=== PATIENT | male | born 1985 | race Caucasian/White ===

== ENCOUNTER 2017-07-01 08:57 | Inpatient (IN) | payer OTHER ==
--- NOTE | 2017-07-01 00:43 | HP ---
Screened but not Admitted - Documentation of Visit Screened but not Admitted: Yes Left Prior to Completion of Assessment: Yes Level of Care Recommended at this Time: ER Evaluation/Care (Patient came c/o new onset chest pain. Respiration unlabored. Alert and oriented. Transported to ER by ambulance. Report given to Dr. Adrian.) Additional Information/Explanation: Hx. Alcohol and Heroin dependency.
[2017-07-01 10:17] VITALS: BMI 35.1
--- NOTE | 2017-07-01 13:05 | HP ---
CIWA Score - CIWA Score Nausea/Vomitin-Mild Nausea/No Vomiting Muscle Tremors: 4-Moderate,w/Arms Extend Anxiety: 4-Mod. Anxious/Guarded Agitation: 1-Slight > Activity Paroxysmal Sweats: 1-Minimal Palms Moist Orientation: 1-Uncertain about Date Tacttile Disturbances: 1-Very Mild Itch/Numbness Auditory Disturbances: 1-Very Mild Visual Disturbances: 1-Very Mild Sensitivity Headache: 1-Very Mild CIWA-Ar Total Score: 16 Admission ROS S - HPI Chief Complaint: Every day I get worse, my dad is on me to get help, I can't just stop by myself Allergies/Adverse Reactions: Allergies Allergy/AdvReac Type Severity Reaction Status Date / Time acetaminophen Allergy Intermediate Hives Verified 07/01/17 13:08 Sulfa (Sulfonamide Allergy Intermediate Hives Verified 07/01/17 13:08 Antibiotics) History of Present Illness: 32 yo gentleman here for detox from alcohol and opiates, however urine tox negative for opiates, negative for oxy. Has untreated psychiatric disorder - never picked up lithium prescription. States had drug related seizure he thinks April 2017 when he tried to stop drinking on his own. Was evaluated in [facility] ED earlier today for chest pain which has abated and was cleared to return for detox. Exam Limitations: Clinical Condition - Ebola screening Have you traveled outside of the country in the last 21 days: No (N) Have you had contact with anyone from an Ebola affected area: No Have you been sick,other than usual withdrawal symptoms: No Do you have a fever: No - Review of Systems Constitutional: Loss of Appetite, Malaise, Changes in sleep EENT: reports: Nose Congestion Respiratory: reports: No Symptoms reported Cardiac: reports: No Symptoms Reported GI: reports: Poor Appetite, Indigestion, Abdominal cramping : reports: Frequency Musculoskeletal: reports: Back Pain, Muscle Pain Integumentary: reports: No Symptoms Reported Neuro: reports: Headache, Tremors Endocrine: reports: No Symptoms Reported Hematology: reports: No Symptoms Reported Psychiatric: reports: Judgement Intact, Orientated x3, Anxious Other Systems: Reviewed and Negative Patient History - Patient Medical History Hx Asthma: Yes (ALBUTEROL PUMP) Hx Chronic Obstructive Pulmonary Disease (COPD): No Hx Cancer: No Hx Cardiac Disorders: Yes Hx Congestive Heart Failure: No Hx Hypertension: Yes HX Cerebrovascular Accident: No Hx Seizures: Yes (WITHDRAWAL INDUCED SEIZURE 5 MONTHS AGO) Hx Diabetes: Yes (NOT ON ANY MEDICATION OR INSULIN CURRENTLY) Hx Gastrointestinal Disorders: No Hx Liver Disease: Yes (fatty liver - alcohol related) Hx Genitourinary Disorders: No Hx Sexually Transmitted Disorders: No Hx Renal Disease (ESRD): No Hx Thyroid Disease: No Hx Human Immunodeficiency Virus (HIV): No Hx Hepatitis C: No Hx Depression: Yes Hx Suicide Attempt: No Hx Bipolar Disorder: Yes (non adherent) Hx Schizophrenia: Yes (hospitalized [facility] in may) - Patient Surgical History Past Surgical History: Yes Hx Neurologic Surgery: No Hx Cataract Extraction: No Hx Cardiac Surgery: No Hx Lung Surgery: No Hx Breast Surgery: No Hx Breast Biopsy: No Hx Abdominal Surgery: No Hx Appendectomy: No Hx Cholecystectomy: No Hx Genitourinary Surgery: No Hx Section: No Hx Orthopedic Surgery: Yes (RIGHT ELBOW 20 YEARS AGO) - PPD History Previous Implant?: Yes Documented Results: Negative w/o proof Implanted On Prior [facility] Admission?: No PPD to be Administered?: Yes - Reproductive History Patient is a Female of Child Bearing Age (11 -55 yrs old): No - Smoking Cessation Smoking history: Current every day smoker Have you smoked in the past 12 months: Yes Aproximately how many cigarettes per day: 40 Hx Chewing Tobacco Use: No Initiated information on smoking cessation: Yes 'Breaking Loose' booklet given: 07/01/17 (give on floor) - Substance & Tx. History Hx Alcohol Use: Yes Hx Substance Use: Yes Substance Use Type: Alcohol, Cocaine, Heroin Hx Substance Use Treatment: Yes (detox, rehab) - Substances Abused Heroin Route: Inhalation Frequency: 3-6 times per week Amount used: 5-6 BAGS WHEN USED Age of first use: 16 Date of Last Use: 06/28/17 Alcohol Route: Oral Amount used: 15 CANS OF HARD ICE TEA, 24 OUNCES, 1-2 PINTS OF VODKA Age of first use: 14 Date of Last Use: 06/30/17 Marijuana/Hashish Route: Smoking Frequency: Daily Amount used: 4-5 BLUNTS DAILY Age of first use: 12 Date of Last Use: 06/30/17 oxycodone Route: Oral Frequency: 3-6 times per week Amount used: 10mg Age of first use: 28 Date of Last Use: 06/28/17 Family Disease History - Family Disease History Family Disease History: Heart Disease: Father (living - healthy, etoh/pot), Other: Father, Mother (living - healthy), Brother (one - living -healthy - etoh/ pot) Admission Physical Exam [facility] - Vital Signs Vital Signs: Vital Signs - 24 hr 07/01/17 10:11 Temperature 98.7 F Pulse Rate 89 Respiratory 17 Rate Blood Pressure 124/85 - Physical General Appearance: Yes: Nourished, Appropriately Dressed, Moderate Distress, Tremorous, Irritable, Anxious HEENTM: Yes: Hearing grossly Normal, Normal ENT Inspection, Normocephalic, Normal Voice, Pharynx Normal Respiratory: Yes: Normal Breath Sounds, No Respiratory Distress Neck: Yes: No masses,lesions,Nodules, Supple Breast: Yes: Breast Exam Deferred Cardiology: Yes: Regular Rhythm, Regular Rate Abdominal: Yes: Flat, Soft Genitourinary: Yes: Frequency Back: Yes: Normal Inspection Musculoskeletal: Yes: full range of Motion, Gait Steady Extremities: Yes: Normal Inspection Neurological: Yes: Alert, Motor Strength 5/5, Normal Mood/Affect, Normal Response Integumentary: Yes: Rash (facial rash - erythematous, scratch ojeda scalp - erythematous - states chronic left lower extremity with circular 4x2 inch dry scaley rash on erythematous base - chronic) Lymphatic: Yes: Within Normal Limits - Diagnostic (1) Alcohol dependence with uncomplicated withdrawal Current Visit: Yes Status: Chronic (2) Cannabis dependence Current Visit: Yes Status: Chronic (3) Obesity (BMI 30-39.9) Current Visit: Yes Status: Chronic (4) Diabetes mellitus type 2, diet-controlled Current Visit: Yes Status: Chronic Comment: history of being on insulin and pills but none lately - [id number] (5) Psoriasis Current Visit: Yes Status: Acute (6) Nicotine dependence Current Visit: Yes Status: Chronic Qualifiers: Nicotine product type: cigarettes Substance use status: uncomplicated Qualified Code(s): F17.210 - Nicotine dependence, cigarettes, uncomplicated (7) History of seizure Current Visit: Yes Status: Chronic Cleared for Admission [facility] - Detox or Rehab [facility] Level of Care: Medically Managed Detox Regimen/Protocol: Librium [facility] Breath Alcohol Content Breath Alcohol Content: 0 Urine Drug Screen - Results Drug Screen Negative: No Urine Drug Screen Results: THC-Marijuana, BZO-Benzodiazepines
[2017-07-01] MEDS ORDERED: LOPERAMIDE HCL 2 MG CAPSULE PO PRN (13:24)
[2017-07-01] MEDS ORDERED: P-EPHED 60MG/TRIPROLIDI 2.5MG TABLET PO PRN (13:24)
[2017-07-01] MEDS ORDERED: hydrOXYzine PAMOATE 25 MG CAPSULE (FP) PO PRN (13:24)
[2017-07-01] MEDS ORDERED: MAGNESIUM CITRATE 300 ML BOTTLE PO PRN (13:24)
[2017-07-01] MEDS ORDERED: MAGNESIUM HYDROX 2400MG/30ML ORAL SUSPENSION 30 ML CUP PO PRN (13:24)
[2017-07-01] MEDS ORDERED: MENTHOL/PHENOL 1 EACH UD MM PRN (13:24)
[2017-07-01] MEDS ORDERED: MAG HYDROX/AL HYDROX/SIMETH 30 ML UNIT-DOSE CUP PO PRN (13:24)
[2017-07-01] MEDS ORDERED: chlordiazePOXIDE HCL 25 MG CAPSULE PO ONE (14:15)
[2017-07-01] MEDS ORDERED: METHADONE HCL 10 MG TABLET (FOR DETOX USE ONLY) PO ONE ×2 (14:15→23:00)
[2017-07-01] MEDS: HYDROCORTISONE 1% TOPICAL OINT 30 GM TUBE TP SCH ×2 (14:42→23:39)
[2017-07-01] MEDS: NICOTINE 21 MG/24 HOURS TOPICAL PATCH TD SCH (14:43)
[2017-07-01] MEDS: ALBUTEROL SO4 18 GM HFA INHALER IH SCH ×3 (14:43→22:43)
[2017-07-01 16:49] LABS: URINE APPEARANCE CLEAR; URINE BILIRUBIN NEGATIVE (<2.0 mg/dL); URINE COLOR YELLOW; URINE GLUCOSE (UA) NEGATIVE (NEGATIVE); URINE KETONE NEGATIVE (NEGATIVE); URINE LEUK ESTERASE NEGATIVE (NEGATIVE); URINE NITRITE NEGATIVE (NEGATIVE); URINE UROBILINOGEN NEGATIVE mg/dL (0.2-1.0)
[2017-07-01 16:51] LABS: URINE PROTEIN 1+ (NEGATIVE)
[2017-07-01 16:54] LABS: EPI CELLS RARE /HPF (FEW); URINE MUCUS FEW
[2017-07-01] MEDS: chlordiazePOXIDE HCL 25 MG CAPSULE PO PRN (19:37)
[2017-07-01] MEDS: chlordiazePOXIDE HCL 25 MG CAPSULE PO SCH (22:41)
[2017-07-01] MEDS: THIAMINE HCL 100 MG TABLET (FP) PO SCH (22:41)
[2017-07-01] MEDS: MELATONIN 5 MG TABLETS PO PRN (22:44)
[2017-07-02] MEDS: chlordiazePOXIDE HCL 25 MG CAPSULE PO SCH ×4 (06:19→22:39)
[2017-07-02] MEDS ORDERED: METHADONE HCL 10 MG TABLET (FOR DETOX USE ONLY) PO SCH (10:00)
--- NOTE | 2017-07-02 10:05 | CONSULT ---
[facility] Psychiatric Consult - Data Date of interview: 07/02/17 Admission source: Self-referred Identifying data: Patient is a 32 y/o male single, unemployed, domiciled, father of 5 children, SSI recipient Substance Abuse History: He reports a history of substance use disorder and prior [facility] treatment. Admitted for ETOH, Cocaine, Heroin, marijuana and oxycodone and benzodiazepines. Refer to addiction counselor note for more detailed history Medical History: Medical history is significant for Asthma, he was seen testerday @ [place] [facility] for chest pain and deemeed medcially cleared. history of past elbow surgery 20 years ago Psychiatric History: Patient is diagnosed with schizo affective disorder. He has a history of non compliance and non adherence with his out patient psychiatric care. He was recently admistted to [facility] in patient psychiatric [facility]ony unit in May 2017. Medications: Klonopin , [place] ( dosage unclear) Physical/Sexual Abuse/Trauma History: Denies past hostory of abuse or trauma Mental Status Exam - Mental Status Exam Alert and Oriented to: Place, Person Cognitive Function: Fair Patient Appearance: Unkempt Mood: Angry Affect: Constricted Patient Behavior: Fatigued, Distractible, Asleep, Cooperative Speech Pattern: Slurred Voice Loudness: Normal Thought Process: Intact Thought Disorder: Not Present Hallucinations: None Suicidal Ideation: None Homicidal Ideation: None Insight/Judgement: Poor Sleep: Poorly Appetite: Fair Muscle strength/Tone: Normal Gait/Station: Normal Psychiatric Findings - Problem List ([place] 1, 2,3) (1) Alcohol dependence with uncomplicated withdrawal Current Visit: Yes Status: Acute (2) History of seizure Current Visit: Yes Status: Chronic (3) Cannabis dependence Current Visit: Yes Status: Acute (4) Schizoaffective disorder, bipolar type Current Visit: Yes Status: Acute (5) Schizoaffective disorder, bipolar type Current Visit: Yes Status: Chronic - Initial Treatment Plan Initial Treatment Plan: Continue Detox treatment. Patient's medication doasage is unclear therefore medication will not be ordered
[2017-07-02] MEDS: PRENATAL VITAMINS W/ FOLIC ACID TABLET (FP) PO SCH (10:18)
[2017-07-02] MEDS: HYDROCORTISONE 1% TOPICAL OINT 30 GM TUBE TP SCH ×2 (10:19→22:53)
[2017-07-02] MEDS: ALBUTEROL SO4 18 GM HFA INHALER IH SCH ×4 (10:19→22:39)
[2017-07-02] MEDS: SELENIUM SULFIDE 2.5% LOTION 4 OZ. TP SCH (10:19)
[2017-07-02] MEDS: NICOTINE 21 MG/24 HOURS TOPICAL PATCH TD SCH (10:19)
[2017-07-02] MEDS ORDERED: cloNIDine HCL 0.1 MG TABLET PO ONE (11:22)
--- NOTE | 2017-07-02 11:29 | PN ---
[facility] CIWA - CIWA Score Nausea/Vomitin-No Nausea/No Vomiting Muscle Tremors: 4-Moderate,w/Arms Extend Anxiety: 5 Agitation: 5 Paroxysmal Sweats: 1-Minimal Palms Moist Orientation: 0-Oriented Tacttile Disturbances: 3-Moderate Itch/Numb/Burn Auditory Disturbances: 0-None Visual Disturbances: 0-None Headache: 0-None Present CIWA-Ar Total Score: 18 BHS Progress Note (SOAP) Subjective: ANXIETY,IRRITABILITY,ANGRY AND PUNCHING THINGS BECAUSE WANTS KLONOPIN AND METHADONE(OPIATE NEGATIVE TOXICOLOGY0. PT C/O INSOMNIA STATING MELATONIN DID NOT HELP LAST NIGHT. Objective: 07/02/17 14:16 Vital Signs 07/02/17 07/02/17 07/02/17 06:30 10:37 13:57 Temperature 95.5 F L 97.6 F Pulse Rate 83 80 Respiratory 18 20 20 Rate Blood Pressure 134/92 134/77 Laboratory Tests 07/01/17 07/01/17 07/01/17 09:15 12:52 16:47 POC Glucometer 124 166 Urine Color Yellow Urine Appearance Clear Urine pH 6.0 Ur Specific [place] 1.026 Urine Protein 1+ H Urine Glucose (UA) Negative Urine Ketones Negative Urine Blood Negative Urine Nitrite Negative Urine Bilirubin Negative Urine Urobilinogen Negative Ur Leukocyte Esterase Negative Urine WBC (Auto) 3 Urine RBC (Auto) 2 Ur Epithelial Cells Rare Urine Mucus Few OTHER LABS PENDING Assessment: 07/02/17 14:16 WITHDRAWAL SX Plan: CONTINUE DETOX CLONIDINE AND FLEXERIL ORDERED. F/U WITH PSYCH RE-EVAL FOR CONSULT
--- NOTE | 2017-07-02 13:27 | EKG ---
Test Reason : Blood Pressure : / mmHG Vent. Rate : 088 BPM Atrial Rate : 088 BPM P-R Int : 120 ms QRS Dur : 090 ms QT Int : 382 ms P-R-T Axes : 050 070 058 degrees QTc Int : 462 ms NORMAL SINUS RHYTHM NORMAL ECG WHEN COMPARED WITH ECG OF 01-JUL-2017 03:25, NONSPECIFIC T WAVE ABNORMALITY NO LONGER EVIDENT IN ANTEROLATERAL LEADS Confirmed by YARED POPE, ZHOU ([id number]) on 07/02/2017 1:27:28 PM Referred By: Confirmed By:ZHOU VAIL MD
[2017-07-02] MEDS: CYCLOBENZAPRINE HCL 10 MG TABLET (FP) PO SCH ×2 (14:30→22:39)
[2017-07-02] MEDS: IBUPROFEN 400 MG TABLET (FP) PO PRN (18:30)
[2017-07-02] MEDS: guaiFENesin/D-METHORPHAN HB 10 ML UNIT-DOSE CUPS PO PRN (19:17)
[2017-07-02] MEDS ORDERED: NICOTINE POLACRILEX 4 MG GUM BUC PRN (19:45)
[2017-07-02] MEDS: GABAPENTIN 100 MG CAPSULE (FP) PO SCH (22:39)
[2017-07-02] MEDS: THIAMINE HCL 100 MG TABLET (FP) PO SCH (22:39)
[2017-07-02] MEDS: cloNIDine HCL 0.1 MG TABLET PO SCH (22:39)
[2017-07-02] MEDS: ZOLPIDEM TARTRATE 10 MG TABLET (PARK CARE ONLY) PO PRN (22:40)
[2017-07-03] MEDS ORDERED: hydrOXYzine PAMOATE 50 MG CAPSULE (FP) PO SCH
[2017-07-03] MEDS: hydrOXYzine PAMOATE 50 MG CAPSULE (FP) PO PRN ×2 (03:08→18:07)
[2017-07-03] MEDS: chlordiazePOXIDE HCL 25 MG CAPSULE PO PRN (03:09)
[2017-07-03] MEDS: chlordiazePOXIDE HCL 25 MG CAPSULE PO SCH ×3 (05:29→18:03)
[2017-07-03] MEDS: GABAPENTIN 100 MG CAPSULE (FP) PO SCH ×3 (05:29→22:38)
[2017-07-03] MEDS: CYCLOBENZAPRINE HCL 10 MG TABLET (FP) PO SCH ×3 (05:29→22:38)
[2017-07-03] MEDS: IBUPROFEN 400 MG TABLET (FP) PO PRN ×3 (05:30→18:07)
[2017-07-03] MEDS ORDERED: METHADONE HCL 5 MG TABLET (FOR DETOX USE ONLY) PO SCH (10:00)
[2017-07-03 10:02] LABS: BASO % 0.4 % (0-2.0); EOS % 3.3 % (0-4.5); HEMATOCRIT 38.2 % (35.4-49); HEMOGLOBIN 13.4 GM/dL (11.7-16.9); LYMPH % 24.4 % (8-40); MCH 32.4 pg (25.7-33.7); MEAN CELL VOLUME 92.6 fl (80-96); MEAN PLT VOLUME 9.5 fl (7.5-11.1); MONO % 7.7 % (3.8-10.2); NEUT % 64.2 % (42.8-82.8); PLATELET COUNT 189 K/MM3 (134-434); RBC 4.13 M/mm3 (4.00-5.60); RDW 12.8 % (11.9-15.9)
[2017-07-03 10:07] LABS: ALBUMIN 3.2 g/dl (3.4-5.0); ANION GAP 6 (8-16); BILIRUBIN,TOTAL 0.3 mg/dL (0.2-1.0); BLOOD UREA NITROGEN 17 mg/dL (7-18); CALCIUM 8.2 mg/dL (8.5-10.1); CHLORIDE 107 mmol/L (98-107); CO2 28 mmol/L (21-32); GLUCOSE,RANDOM 180 mg/dL (74-106); SGOT/AST 10 U/L (15-37); SGPT/ALT 21 U/L (12-78); SODIUM 141 mmol/L (136-145); TOT PROT 5.9 g/dl (6.4-8.2)
[2017-07-03 10:08] LABS: ALK PHOS 63 U/L (45-117)
[2017-07-03] MEDS: PRENATAL VITAMINS W/ FOLIC ACID TABLET (FP) PO SCH (11:58)
[2017-07-03] MEDS: cloNIDine HCL 0.1 MG TABLET PO SCH ×2 (11:59→22:37)
[2017-07-03] MEDS: SELENIUM SULFIDE 2.5% LOTION 4 OZ. TP SCH (12:00)
[2017-07-03] MEDS: NICOTINE 21 MG/24 HOURS TOPICAL PATCH TD SCH (12:01)
[2017-07-03] MEDS: HYDROCORTISONE 1% TOPICAL OINT 30 GM TUBE TP SCH ×2 (12:01→22:40)
[2017-07-03] MEDS: ALBUTEROL SO4 18 GM HFA INHALER IH SCH ×4 (12:04→22:40)
--- NOTE | 2017-07-03 13:33 | PN ---
S CIWA - CIWA Score Nausea/Vomitin Muscle Tremors: 3 Anxiety: 4-Mod. Anxious/Guarded Agitation: 5 Paroxysmal Sweats: 1-Minimal Palms Moist Orientation: 0-Oriented Tacttile Disturbances: 0-None Auditory Disturbances: 0-None Visual Disturbances: 0-None Headache: 0-None Present CIWA-Ar Total Score: 16 BHS Progress Note (SOAP) Subjective: Sweats shakes sleep disturbance Objective: 07/03/17 13:32 A & O x 3 Anxious Irritable Vital Signs Temperature 95.7 F L 07/03/17 09:26 Pulse Rate 81 07/03/17 09:26 Respiratory Rate 16 07/03/17 09:26 Blood Pressure 107/70 07/03/17 09:26 O2 Sat by Pulse Oximetry (%) Laboratory Last Values WBC 8.0 K/mm3 (4.0-10.0) 07/03/17 07:00 RBC 4.13 M/mm3 (4.00-5.60) 07/03/17 07:00 Hgb 13.4 GM/dL (11.7-16.9) 07/03/17 07:00 Hct 38.2 % (35.4-49) 07/03/17 07:00 MCV 92.6 fl (80-96) 07/03/17 07:00 MCH 32.4 pg (25.7-33.7) 07/03/17 07:00 MCHC 35.0 g/dl (32.0-35.9) 07/03/17 07:00 RDW 12.8 % (11.9-15.9) 07/03/17 07:00 Plt Count 189 K/MM3 (134-434) 07/03/17 07:00 MPV 9.5 fl (7.5-11.1) 07/03/17 07:00 Neutrophils % 64.2 % (42.8-82.8) 07/03/17 07:00 Lymphocytes % 24.4 % (8-40) 07/03/17 07:00 Monocytes % 7.7 % (3.8-10.2) 07/03/17 07:00 Eosinophils % 3.3 % (0-4.5) 07/03/17 07:00 Basophils % 0.4 % (0-2.0) 07/03/17 07:00 Sodium 141 mmol/L (136-145) 07/03/17 07:00 Potassium 4.0 mmol/L (3.5-5.1) 07/03/17 07:00 Chloride 107 mmol/L (98-107) 07/03/17 07:00 Carbon Dioxide 28 mmol/L (21-32) 07/03/17 07:00 Anion Gap 6 (8-16) L 07/03/17 07:00 BUN 17 mg/dL (7-18) 07/03/17 07:00 Creatinine 1.0 mg/dL (0.7-1.3) 07/03/17 07:00 Creat Clearance w eGFR > 60 (>60) 07/03/17 07:00 POC Glucometer 113 UNITS (80-120) 07/03/17 05:29 Random Glucose 180 mg/dL (74-106) H 07/03/17 07:00 Calcium 8.2 mg/dL (8.5-10.1) L 07/03/17 07:00 Total Bilirubin 0.3 mg/dL (0.2-1.0) 07/03/17 07:00 AST 10 U/L (15-37) L 07/03/17 07:00 ALT 21 U/L (12-78) 07/03/17 07:00 Alkaline Phosphatase 63 U/L (45-117) 07/03/17 07:00 Total Protein 5.9 g/dl (6.4-8.2) L 07/03/17 07:00 Albumin 3.2 g/dl (3.4-5.0) L 07/03/17 07:00 Urine Color Yellow 07/01/17 09:15 Urine Appearance Clear 07/01/17 09:15 Urine pH 6.0 (5.0-8.0) 07/01/17 09:15 Ur Specific [place] 1.026 (1.001-1.035) 07/01/17 09:15 Urine Protein 1+ (NEGATIVE) H 07/01/17 09:15 Urine Glucose (UA) Negative (NEGATIVE) 07/01/17 09:15 Urine Ketones Negative (NEGATIVE) 07/01/17 09:15 Urine Blood Negative (NEGATIVE) 07/01/17 09:15 Urine Nitrite Negative (NEGATIVE) 07/01/17 09:15 Urine Bilirubin Negative (<2.0 mg/dL) 07/01/17 09:15 Urine Urobilinogen Negative mg/dL (0.2-1.0) 07/01/17 09:15 Ur Leukocyte Esterase Negative (NEGATIVE) 07/01/17 09:15 Urine WBC (Auto) 3 /hpf (3-5) 07/01/17 09:15 Urine RBC (Auto) 2 /hpf (0-3) 07/01/17 09:15 Ur Epithelial Cells Rare /HPF (FEW) 07/01/17 09:15 Urine Mucus Few 07/01/17 09:15 Labs noted Assessment: 07/03/17 13:32 withdrawal sx Plan: Continue detox Continue hydration
[2017-07-03] MEDS: THIAMINE HCL 100 MG TABLET (FP) PO SCH (22:37)
[2017-07-03] MEDS: chlordiazePOXIDE 5 MG CAPSULE PO SCH (22:37)
[2017-07-03] MEDS: ZOLPIDEM TARTRATE 10 MG TABLET (PARK CARE ONLY) PO PRN (22:38)
[2017-07-04] MEDS: IBUPROFEN 400 MG TABLET (FP) PO PRN ×2 (02:12→10:36)
[2017-07-04] MEDS: hydrOXYzine PAMOATE 50 MG CAPSULE (FP) PO PRN ×3 (02:12→17:42)
[2017-07-04] MEDS: chlordiazePOXIDE 5 MG CAPSULE PO SCH ×3 (05:37→17:37)
[2017-07-04] MEDS: CYCLOBENZAPRINE HCL 10 MG TABLET (FP) PO SCH ×3 (05:37→22:20)
[2017-07-04] MEDS: GABAPENTIN 100 MG CAPSULE (FP) PO SCH ×3 (05:37→22:20)
[2017-07-04] MEDS: cloNIDine HCL 0.1 MG TABLET PO SCH ×2 (10:31→22:20)
[2017-07-04] MEDS: HYDROCORTISONE 1% TOPICAL OINT 30 GM TUBE TP SCH ×2 (10:32→23:07)
[2017-07-04] MEDS: ALBUTEROL SO4 18 GM HFA INHALER IH SCH ×4 (10:32→22:20)
[2017-07-04] MEDS: PRENATAL VITAMINS W/ FOLIC ACID TABLET (FP) PO SCH (10:32)
[2017-07-04] MEDS: NICOTINE 21 MG/24 HOURS TOPICAL PATCH TD SCH (10:33)
[2017-07-04] MEDS: SELENIUM SULFIDE 2.5% LOTION 4 OZ. TP SCH (10:34)
--- NOTE | 2017-07-04 11:45 | PN ---
BHS Progress Note (SOAP) Subjective: Body Aches, Interrupted Sleep, Constipation, Anxious, Nausea. Objective: PATIENT A & O X 2 (UNCERTAIN ABOUT CURRENT DAY / DATE). PATIENT OBSERVED AMBULATING ON UNIT. NO ACUTE DISTRESS. 07/04/17 11:42 Vital Signs Temperature 96.7 F L 07/04/17 09:06 Pulse Rate 86 07/04/17 09:06 Respiratory Rate 18 07/04/17 09:06 Blood Pressure 114/72 07/04/17 09:06 O2 Sat by Pulse Oximetry (%) Laboratory Tests 07/01/17 07/01/17 07/01/17 09:15 12:52 16:47 WBC RBC Hgb Hct MCV MCH MCHC RDW Plt Count MPV Neutrophils % Lymphocytes % Monocytes % Eosinophils % Basophils % Sodium Potassium Chloride Carbon Dioxide Anion Gap BUN Creatinine Creat Clearance w eGFR POC Glucometer 124 166 Random Glucose Calcium Total Bilirubin AST ALT Alkaline Phosphatase Total Protein Albumin Urine Color Yellow Urine Appearance Clear Urine pH 6.0 Ur Specific [place] 1.026 Urine Protein 1+ H Urine Glucose (UA) Negative Urine Ketones Negative Urine Blood Negative Urine Nitrite Negative Urine Bilirubin Negative Urine Urobilinogen Negative Ur Leukocyte Esterase Negative Urine WBC (Auto) 3 Urine RBC (Auto) 2 Ur Epithelial Cells Rare Urine Mucus Few [place] RPR Titer 07/03/17 07/03/17 07/03/17 05:29 07:00 07:00 WBC 8.0 RBC 4.13 Hgb 13.4 Hct 38.2 MCV 92.6 MCH 32.4 MCHC 35.0 RDW 12.8 Plt Count 189 MPV 9.5 Neutrophils % 64.2 Lymphocytes % 24.4 Monocytes % 7.7 Eosinophils % 3.3 Basophils % 0.4 Sodium 141 Potassium 4.0 Chloride 107 Carbon Dioxide 28 Anion Gap 6 L BUN 17 Creatinine 1.0 Creat Clearance w eGFR > 60 POC Glucometer 113 Random Glucose 180 H Calcium 8.2 L Total Bilirubin 0.3 AST 10 L ALT 21 Alkaline Phosphatase 63 Total Protein 5.9 L Albumin 3.2 L Urine Color Urine Appearance Urine pH Ur Specific [place] Urine Protein Urine Glucose (UA) Urine Ketones Urine Blood Urine Nitrite Urine Bilirubin Urine Urobilinogen Ur Leukocyte Esterase Urine WBC (Auto) Urine RBC (Auto) Ur Epithelial Cells Urine Mucus [place] RPR Titer 07/03/17 07/03/17 07/04/17 07:00 07:00 05:36 WBC RBC Hgb Hct MCV MCH MCHC RDW Plt Count MPV Neutrophils % Lymphocytes % Monocytes % Eosinophils % Basophils % Sodium Potassium Chloride Carbon Dioxide Anion Gap BUN Creatinine Creat Clearance w eGFR POC Glucometer 135 Random Glucose Calcium Total Bilirubin AST ALT Alkaline Phosphatase Total Protein Albumin Urine Color Urine Appearance Urine pH Ur Specific [place] Urine Protein Urine Glucose (UA) Urine Ketones Urine Blood Urine Nitrite Urine Bilirubin Urine Urobilinogen Ur Leukocyte Esterase Urine WBC (Auto) Urine RBC (Auto) Ur Epithelial Cells Urine Mucus [place] 0 L RPR Titer Nonreactive LABS NOTED. Assessment: 07/04/17 11:43 WITHDRAWAL SYMPTOMS. Plan: CONTINUE DETOX. INCREASE DAILY PO FLUID INTAKE. ENCOURAGE AMBULATION. IBUPROFEN 600 MG PO PRN, FLEXERIL PO PRN FOR BODY ACHES.
[2017-07-04] MEDS: IBUPROFEN 600 MG TABLET (FP) PO PRN (14:07)
[2017-07-04] MEDS: THIAMINE HCL 100 MG TABLET (FP) PO SCH (22:20)
[2017-07-04] MEDS: chlordiazePOXIDE HCL 10 MG CAPSULE PO SCH (22:20)
[2017-07-04] MEDS: ZOLPIDEM TARTRATE 10 MG TABLET (PARK CARE ONLY) PO PRN (22:20)
[2017-07-05] MEDS: MELATONIN 5 MG TABLETS PO PRN ×2 (00:02→22:26)
[2017-07-05] MEDS: guaiFENesin/D-METHORPHAN HB 10 ML UNIT-DOSE CUPS PO PRN ×2 (00:29→14:24)
[2017-07-05] MEDS: hydrOXYzine PAMOATE 50 MG CAPSULE (FP) PO PRN ×3 (00:29→14:23)
[2017-07-05] MEDS: chlordiazePOXIDE HCL 10 MG CAPSULE PO SCH ×3 (05:55→18:03)
[2017-07-05] MEDS: GABAPENTIN 100 MG CAPSULE (FP) PO SCH ×3 (05:55→22:25)
[2017-07-05] MEDS: CYCLOBENZAPRINE HCL 10 MG TABLET (FP) PO SCH (05:55)
[2017-07-05] MEDS: IBUPROFEN 600 MG TABLET (FP) PO PRN ×2 (05:56→22:30)
[2017-07-05] MEDS ORDERED: METHADONE HCL 10 MG TABLET (FOR DETOX USE ONLY) PO SCH (10:00)
[2017-07-05] MEDS: SELENIUM SULFIDE 2.5% LOTION 4 OZ. TP SCH (10:12)
[2017-07-05] MEDS: PRENATAL VITAMINS W/ FOLIC ACID TABLET (FP) PO SCH (10:12)
[2017-07-05] MEDS: ALBUTEROL SO4 18 GM HFA INHALER IH SCH ×4 (10:12→22:25)
[2017-07-05] MEDS: cloNIDine HCL 0.1 MG TABLET PO SCH ×2 (10:13→22:25)
[2017-07-05] MEDS: NICOTINE 21 MG/24 HOURS TOPICAL PATCH TD SCH (10:14)
[2017-07-05] MEDS: HYDROCORTISONE 1% TOPICAL OINT 30 GM TUBE TP SCH ×2 (10:14→22:25)
--- NOTE | 2017-07-05 12:33 | PN ---
BHS Progress Note (SOAP) Subjective: Body Aches, Fatigue, H/A, Anxious. Objective: PATIENT A & O X 3, OBSERVED AMBULATING ON UNIT. NO ACUTE DISTRESS. 07/05/17 12:31 Vital Signs Temperature 96.3 F L 07/05/17 10:13 Pulse Rate 62 07/05/17 10:13 Respiratory Rate 18 07/05/17 10:13 Blood Pressure 103/68 07/05/17 10:13 O2 Sat by Pulse Oximetry (%) Laboratory Tests 07/01/17 07/01/17 07/01/17 09:15 12:52 16:47 WBC RBC Hgb Hct MCV MCH MCHC RDW Plt Count MPV Neutrophils % Lymphocytes % Monocytes % Eosinophils % Basophils % Sodium Potassium Chloride Carbon Dioxide Anion Gap BUN Creatinine Creat Clearance w eGFR POC Glucometer 124 166 Random Glucose Calcium Total Bilirubin AST ALT Alkaline Phosphatase Total Protein Albumin Urine Color Yellow Urine Appearance Clear Urine pH 6.0 Ur Specific [place] 1.026 Urine Protein 1+ H Urine Glucose (UA) Negative Urine Ketones Negative Urine Blood Negative Urine Nitrite Negative Urine Bilirubin Negative Urine Urobilinogen Negative Ur Leukocyte Esterase Negative Urine WBC (Auto) 3 Urine RBC (Auto) 2 Ur Epithelial Cells Rare Urine Mucus Few [place] RPR Titer 07/03/17 07/03/17 07/03/17 05:29 07:00 07:00 WBC 8.0 RBC 4.13 Hgb 13.4 Hct 38.2 MCV 92.6 MCH 32.4 MCHC 35.0 RDW 12.8 Plt Count 189 MPV 9.5 Neutrophils % 64.2 Lymphocytes % 24.4 Monocytes % 7.7 Eosinophils % 3.3 Basophils % 0.4 Sodium 141 Potassium 4.0 Chloride 107 Carbon Dioxide 28 Anion Gap 6 L BUN 17 Creatinine 1.0 Creat Clearance w eGFR > 60 POC Glucometer 113 Random Glucose 180 H Calcium 8.2 L Total Bilirubin 0.3 AST 10 L ALT 21 Alkaline Phosphatase 63 Total Protein 5.9 L Albumin 3.2 L Urine Color Urine Appearance Urine pH Ur Specific [place] Urine Protein Urine Glucose (UA) Urine Ketones Urine Blood Urine Nitrite Urine Bilirubin Urine Urobilinogen Ur Leukocyte Esterase Urine WBC (Auto) Urine RBC (Auto) Ur Epithelial Cells Urine Mucus [place] RPR Titer 07/03/17 07/03/17 07/04/17 07:00 07:00 05:36 WBC RBC Hgb Hct MCV MCH MCHC RDW Plt Count MPV Neutrophils % Lymphocytes % Monocytes % Eosinophils % Basophils % Sodium Potassium Chloride Carbon Dioxide Anion Gap BUN Creatinine Creat Clearance w eGFR POC Glucometer 135 Random Glucose Calcium Total Bilirubin AST ALT Alkaline Phosphatase Total Protein Albumin Urine Color Urine Appearance Urine pH Ur Specific [place] Urine Protein Urine Glucose (UA) Urine Ketones Urine Blood Urine Nitrite Urine Bilirubin Urine Urobilinogen Ur Leukocyte Esterase Urine WBC (Auto) Urine RBC (Auto) Ur Epithelial Cells Urine Mucus [place] 0 L RPR Titer Nonreactive 07/04/17 07/05/17 16:31 05:54 WBC RBC Hgb Hct MCV MCH MCHC RDW Plt Count MPV Neutrophils % Lymphocytes % Monocytes % Eosinophils % Basophils % Sodium Potassium Chloride Carbon Dioxide Anion Gap BUN Creatinine Creat Clearance w eGFR POC Glucometer 168 163 Random Glucose Calcium Total Bilirubin AST ALT Alkaline Phosphatase Total Protein Albumin Urine Color Urine Appearance Urine pH Ur Specific [place] Urine Protein Urine Glucose (UA) Urine Ketones Urine Blood Urine Nitrite Urine Bilirubin Urine Urobilinogen Ur Leukocyte Esterase Urine WBC (Auto) Urine RBC (Auto) Ur Epithelial Cells Urine Mucus [place] RPR Titer LABS NOTED. Assessment: 07/05/17 12:31 WITHDRAWAL SYMPTOMS. Plan: CONTINUE DETOX. INCREASE DAILY PO FLUID INTAKE. DUE TO PERSISTENCE AND SEVERITY LEVEL OF WITHDRAWAL SYMPTOMS, PATIENT PERMITTED TO REMAIN ON DETOX UNIT UNTIL TOMORROW, 07/06/2017.
[2017-07-05] MEDS: THIAMINE HCL 100 MG TABLET (FP) PO SCH (22:25)
[2017-07-05] MEDS: ZOLPIDEM TARTRATE 10 MG TABLET (PARK CARE ONLY) PO PRN (22:29)
[2017-07-06] MEDS: hydrOXYzine PAMOATE 50 MG CAPSULE (FP) PO PRN (05:45)
[2017-07-06] MEDS: GABAPENTIN 100 MG CAPSULE (FP) PO SCH (05:45)
[2017-07-06] MEDS ORDERED: METHADONE HCL 5 MG TABLET (FOR DETOX USE ONLY) PO SCH (06:00)
[2017-07-06 09:45] VITALS: BP 120/83; PULSE 82; TEMP 96.5
[2017-07-06] MEDS: PRENATAL VITAMINS W/ FOLIC ACID TABLET (FP) PO SCH (09:59)
[2017-07-06] MEDS: ALBUTEROL SO4 18 GM HFA INHALER IH SCH (10:00)
[2017-07-06] MEDS: cloNIDine HCL 0.1 MG TABLET PO SCH (10:00)
[2017-07-06] MEDS: HYDROCORTISONE 1% TOPICAL OINT 30 GM TUBE TP SCH (10:00)
[2017-07-06] MEDS: NICOTINE 21 MG/24 HOURS TOPICAL PATCH TD SCH (10:00)
[2017-07-06] MEDS: SELENIUM SULFIDE 2.5% LOTION 4 OZ. TP SCH (10:00)
--- NOTE | 2017-07-06 12:12 | PN ---
[facility] Progress Note (SOAP) Subjective: Patient reports body aches and fatigue. Patient denies any other current detox symptoms. Objective: PATIENT A & O X 3, OBSERVED AMBULATING ON UNIT. NO ACUTE DISTRESS. 07/06/17 12:11 Vital Signs Temperature 96.5 F L 07/06/17 09:44 Pulse Rate 82 07/06/17 09:44 Respiratory Rate 20 07/06/17 09:44 Blood Pressure 120/83 07/06/17 09:44 O2 Sat by Pulse Oximetry (%) Laboratory Tests 07/01/17 07/01/17 07/01/17 09:15 12:52 16:47 WBC RBC Hgb Hct MCV MCH MCHC RDW Plt Count MPV Neutrophils % Lymphocytes % Monocytes % Eosinophils % Basophils % Sodium Potassium Chloride Carbon Dioxide Anion Gap BUN Creatinine Creat Clearance w eGFR POC Glucometer 124 166 Random Glucose Calcium Total Bilirubin AST ALT Alkaline Phosphatase Total Protein Albumin Urine Color Yellow Urine Appearance Clear Urine pH 6.0 Ur Specific [place] 1.026 Urine Protein 1+ H Urine Glucose (UA) Negative Urine Ketones Negative Urine Blood Negative Urine Nitrite Negative Urine Bilirubin Negative Urine Urobilinogen Negative Ur Leukocyte Esterase Negative Urine WBC (Auto) 3 Urine RBC (Auto) 2 Ur Epithelial Cells Rare Urine Mucus Few [place] RPR Titer 07/03/17 07/03/17 07/03/17 05:29 07:00 07:00 WBC 8.0 RBC 4.13 Hgb 13.4 Hct 38.2 MCV 92.6 MCH 32.4 MCHC 35.0 RDW 12.8 Plt Count 189 MPV 9.5 Neutrophils % 64.2 Lymphocytes % 24.4 Monocytes % 7.7 Eosinophils % 3.3 Basophils % 0.4 Sodium 141 Potassium 4.0 Chloride 107 Carbon Dioxide 28 Anion Gap 6 L BUN 17 Creatinine 1.0 Creat Clearance w eGFR > 60 POC Glucometer 113 Random Glucose 180 H Calcium 8.2 L Total Bilirubin 0.3 AST 10 L ALT 21 Alkaline Phosphatase 63 Total Protein 5.9 L Albumin 3.2 L Urine Color Urine Appearance Urine pH Ur Specific [place] Urine Protein Urine Glucose (UA) Urine Ketones Urine Blood Urine Nitrite Urine Bilirubin Urine Urobilinogen Ur Leukocyte Esterase Urine WBC (Auto) Urine RBC (Auto) Ur Epithelial Cells Urine Mucus [place] RPR Titer 07/03/17 07/03/17 07/04/17 07:00 07:00 05:36 WBC RBC Hgb Hct MCV MCH MCHC RDW Plt Count MPV Neutrophils % Lymphocytes % Monocytes % Eosinophils % Basophils % Sodium Potassium Chloride Carbon Dioxide Anion Gap BUN Creatinine Creat Clearance w eGFR POC Glucometer 135 Random Glucose Calcium Total Bilirubin AST ALT Alkaline Phosphatase Total Protein Albumin Urine Color Urine Appearance Urine pH Ur Specific [place] Urine Protein Urine Glucose (UA) Urine Ketones Urine Blood Urine Nitrite Urine Bilirubin Urine Urobilinogen Ur Leukocyte Esterase Urine WBC (Auto) Urine RBC (Auto) Ur Epithelial Cells Urine Mucus [place] 0 L RPR Titer Nonreactive 07/04/17 07/05/17 07/05/17 16:31 05:54 16:27 WBC RBC Hgb Hct MCV MCH MCHC RDW Plt Count MPV Neutrophils % Lymphocytes % Monocytes % Eosinophils % Basophils % Sodium Potassium Chloride Carbon Dioxide Anion Gap BUN Creatinine Creat Clearance w eGFR POC Glucometer 168 163 124 Random Glucose Calcium Total Bilirubin AST ALT Alkaline Phosphatase Total Protein Albumin Urine Color Urine Appearance Urine pH Ur Specific [place] Urine Protein Urine Glucose (UA) Urine Ketones Urine Blood Urine Nitrite Urine Bilirubin Urine Urobilinogen Ur Leukocyte Esterase Urine WBC (Auto) Urine RBC (Auto) Ur Epithelial Cells Urine Mucus [place] RPR Titer 07/06/17 05:45 WBC RBC Hgb Hct MCV MCH MCHC RDW Plt Count MPV Neutrophils % Lymphocytes % Monocytes % Eosinophils % Basophils % Sodium Potassium Chloride Carbon Dioxide Anion Gap BUN Creatinine Creat Clearance w eGFR POC Glucometer 133 Random Glucose Calcium Total Bilirubin AST ALT Alkaline Phosphatase Total Protein Albumin Urine Color Urine Appearance Urine pH Ur Specific [place] Urine Protein Urine Glucose (UA) Urine Ketones Urine Blood Urine Nitrite Urine Bilirubin Urine Urobilinogen Ur Leukocyte Esterase Urine WBC (Auto) Urine RBC (Auto) Ur Epithelial Cells Urine Mucus [place] RPR Titer LABS NOTED. Assessment: 07/06/17 12:11 COMPLETION OF DETOX REGIMEN. Plan: PATIENT SCHEDULED FOR DISCHARGE FROM DETOX UNIT TODAY.
--- NOTE | 2017-07-06 12:18 | DS ---
[facility] Detox Discharge Summary Admission Date: 07/01/17 Discharge Date: 07/06/17 - History Present History: Alcohol Dependence, Cannabis Dependence Additional Comments: PATIENT DECLINES AFTERCARE REFERRAL AT THIS TIME. PATIENT ADVISED TO CONSIDER LOCAL 12-STEP / NA/ AA OUTPATIENT SUPPORT GROUP PROGRAMS FOR AFTERCARE. PATIENT DECLINED OFFER OF DISCHARGE MEDICATION PRESCRIPTIONS, NOTING THAT HE HAS REFILL PRESCRIPTIONS CURRENTLY WAITING FOR HIM AT HIS PHARMACY ([facility], [place] , [place]). PATIENT WAS DISCHARGED FROM DETOX UNIT IN STABLE MEDICAL CONDITION. Pertinent Past History: History of [place], History of Type II DM, Bipolar Disorder, Schizoaffective Disorder, Asthma, HTN, Fatty Liver, Depression, Nicotine Dependence, Psoriasis. - Physical Exam Results Vital Signs: Vital Signs Temperature 96.5 F L 07/06/17 09:44 Pulse Rate 82 07/06/17 09:44 Respiratory Rate 20 07/06/17 09:44 Blood Pressure 120/83 07/06/17 09:44 O2 Sat by Pulse Oximetry (%) Pertinent Admission Physical Exam Findings: WITHDRAWAL SYMPTOMS. Laboratory Tests 07/01/17 07/01/17 07/01/17 09:15 12:52 16:47 WBC RBC Hgb Hct MCV MCH MCHC RDW Plt Count MPV Neutrophils % Lymphocytes % Monocytes % Eosinophils % Basophils % Sodium Potassium Chloride Carbon Dioxide Anion Gap BUN Creatinine Creat Clearance w eGFR POC Glucometer 124 166 Random Glucose Calcium Total Bilirubin AST ALT Alkaline Phosphatase Total Protein Albumin Urine Color Yellow Urine Appearance Clear Urine pH 6.0 Ur Specific [place] 1.026 Urine Protein 1+ H Urine Glucose (UA) Negative Urine Ketones Negative Urine Blood Negative Urine Nitrite Negative Urine Bilirubin Negative Urine Urobilinogen Negative Ur Leukocyte Esterase Negative Urine WBC (Auto) 3 Urine RBC (Auto) 2 Ur Epithelial Cells Rare Urine Mucus Few [place] RPR Titer 07/03/17 07/03/17 07/03/17 05:29 07:00 07:00 WBC 8.0 RBC 4.13 Hgb 13.4 Hct 38.2 MCV 92.6 MCH 32.4 MCHC 35.0 RDW 12.8 Plt Count 189 MPV 9.5 Neutrophils % 64.2 Lymphocytes % 24.4 Monocytes % 7.7 Eosinophils % 3.3 Basophils % 0.4 Sodium 141 Potassium 4.0 Chloride 107 Carbon Dioxide 28 Anion Gap 6 L BUN 17 Creatinine 1.0 Creat Clearance w eGFR > 60 POC Glucometer 113 Random Glucose 180 H Calcium 8.2 L Total Bilirubin 0.3 AST 10 L ALT 21 Alkaline Phosphatase 63 Total Protein 5.9 L Albumin 3.2 L Urine Color Urine Appearance Urine pH Ur Specific [place] Urine Protein Urine Glucose (UA) Urine Ketones Urine Blood Urine Nitrite Urine Bilirubin Urine Urobilinogen Ur Leukocyte Esterase Urine WBC (Auto) Urine RBC (Auto) Ur Epithelial Cells Urine Mucus [place] RPR Titer 07/03/17 07/03/17 07/04/17 07:00 07:00 05:36 WBC RBC Hgb Hct MCV MCH MCHC RDW Plt Count MPV Neutrophils % Lymphocytes % Monocytes % Eosinophils % Basophils % Sodium Potassium Chloride Carbon Dioxide Anion Gap BUN Creatinine Creat Clearance w eGFR POC Glucometer 135 Random Glucose Calcium Total Bilirubin AST ALT Alkaline Phosphatase Total Protein Albumin Urine Color Urine Appearance Urine pH Ur Specific [place] Urine Protein Urine Glucose (UA) Urine Ketones Urine Blood Urine Nitrite Urine Bilirubin Urine Urobilinogen Ur Leukocyte Esterase Urine WBC (Auto) Urine RBC (Auto) Ur Epithelial Cells Urine Mucus [place] 0 L RPR Titer Nonreactive 07/04/17 07/05/17 07/05/17 16:31 05:54 16:27 WBC RBC Hgb Hct MCV MCH MCHC RDW Plt Count MPV Neutrophils % Lymphocytes % Monocytes % Eosinophils % Basophils % Sodium Potassium Chloride Carbon Dioxide Anion Gap BUN Creatinine Creat Clearance w eGFR POC Glucometer 168 163 124 Random Glucose Calcium Total Bilirubin AST ALT Alkaline Phosphatase Total Protein Albumin Urine Color Urine Appearance Urine pH Ur Specific [place] Urine Protein Urine Glucose (UA) Urine Ketones Urine Blood Urine Nitrite Urine Bilirubin Urine Urobilinogen Ur Leukocyte Esterase Urine WBC (Auto) Urine RBC (Auto) Ur Epithelial Cells Urine Mucus [place] RPR Titer 07/06/17 05:45 WBC RBC Hgb Hct MCV MCH MCHC RDW Plt Count MPV Neutrophils % Lymphocytes % Monocytes % Eosinophils % Basophils % Sodium Potassium Chloride Carbon Dioxide Anion Gap BUN Creatinine Creat Clearance w eGFR POC Glucometer 133 Random Glucose Calcium Total Bilirubin AST ALT Alkaline Phosphatase Total Protein Albumin Urine Color Urine Appearance Urine pH Ur Specific [place] Urine Protein Urine Glucose (UA) Urine Ketones Urine Blood Urine Nitrite Urine Bilirubin Urine Urobilinogen Ur Leukocyte Esterase Urine WBC (Auto) Urine RBC (Auto) Ur Epithelial Cells Urine Mucus [place] RPR Titer LABS NOTED. - Treatment Hospital Course: Detox Protocol Followed, Detoxed Safely, Responded well, Discharged Condition Good Patient has Accepted a Rehab Referral to: NO. PT ADVISED TO CONSIDER LOCAL 12- STEP/NA/AA OUTPATIENT SUPPORT GROUPS. - Medication Discharge Medications: Ambulatory Orders Albuterol Sulfate Inhaler - [Ventolin Hfa Inhaler -] 1 - 2 inh PO QID 07/01/17 [place] Carbonate [Eskalith -] 0 mg PO BID 07/01/17 - Diagnosis (1) Alcohol dependence with uncomplicated withdrawal Status: Acute (2) Cannabis dependence Status: Acute (3) Schizoaffective disorder, bipolar type Status: Acute (4) Diabetes mellitus type 2, diet-controlled Status: Chronic (5) History of seizure Status: Chronic (6) Nicotine dependence Status: Chronic Qualifiers: Nicotine product type: cigarettes Substance use status: uncomplicated Qualified Code(s): F17.210 - Nicotine dependence, cigarettes, uncomplicated (7) Obesity (BMI 30-39.9) Status: Chronic (8) Psoriasis Status: Chronic (9) Schizoaffective disorder, bipolar type Status: Chronic - AMA Did Patient Leave Against Medical Advice: No
== END 2017-07-06 10:25 | disposition home or self-care (01) | DRG 897 ==
LOC: YASAS 08:57 → Y3N 13:42
PROVIDERS: ADMIT Internal Medicine; ATTEND Internal Medicine
PROC: HZ2ZZZZ Detoxification Services for Substance Abuse Treatment (ICD-10-PCS; principal; 2017-07-01)
DX: F19.230 Other psychoactive substance dependence with withdrawal, uncomplicated (principal); F10.230 Alcohol dependence with withdrawal, uncomplicated; F12.20 Cannabis dependence, uncomplicated; F17.210 Nicotine dependence, cigarettes, uncomplicated; F25.0 Schizoaffective disorder, bipolar type; E11.9 Type 2 diabetes mellitus without complications; L40.9 Psoriasis, unspecified; J45.909 Unspecified asthma, uncomplicated; K76.0 Fatty (change of) liver, not elsewhere classified; E66.9 Obesity, unspecified; Z68.35 Body mass index [BMI] 35.0-35.9, adult; Z86.69 Personal history of other diseases of the nervous system and sense organs; Z88.2 Allergy status to sulfonamides; Z91.14 Patient's other noncompliance with medication regimen
CPT/HCPCS: 36415; 80053; 80178; 81003; 81015; 82962; 85025; 86593; 93005; 93010; 99282-25; J0735